=== PATIENT | female | born 1995 | race Caucasian/White ===

== ENCOUNTER 2017-09-18 14:37 | Emergency (ER) | payer OTHER ==
[~2017-09-18] VITALS: Ht 167.6 cm; Wt 72.6 kg
--- NOTE | 2017-09-18 15:10 | ED INFLUENZA/URI COMPLAINT ---
History of Present Illness General Chief Complaint: General Adult Stated Complaint: FEVER,+VOMITING Source: patient, old records Exam Limitations: no limitations Vital Signs & Intake/Output Vital Signs & Intake/Output Vital Signs Date Time Temp Pulse Resp B/P B/P Pulse O2 O2 Flow FiO2 Mean Ox Delivery Rate 09/18 1619 98.8 09/18 1618 98.8 100 16 160/88 97 Room Air 09/18 1527 97 09/18 1447 99.9 125 20 171/99 95 Room Air Allergies Coded Allergies: NO KNOWN ALLERGIES (09/18/17) Reconcile Medications Oseltamivir Phosphate (Tamiflu) 75 MG CAPSULE 1 CAP PO BID flu Triage Note: PT C/O FEVER X 2 DAYS, CHEST CONGESTION WITH PRODUCTIVE COUGH. Triage Nurses Notes Reviewed? yes Onset: Abrupt Duration: day(s): (3), constant Timing: recent history Severity: moderate Severity Numbers: 5 No Modifying Factors: none Associated Symptoms: cough, muscle aches, nasal congestion, sore throat : No Patient currently breastfeeds: No HPI: This is a 22-year-old female no known medical history presents to the ER complaining of productive cough yellow sputum, fevers as high as 101.8 congestion for the past 3 days. She's been taking Advil and Mucinex without improvement her last dose of Advil was yesterday. She also reports to nausea and diarrhea. No vomiting no abdominal pain no shortness of breath no rashes to her skin no urinary urgency frequency dysuria. No sick contacts she did not receive a flu shot this year. (Jose Solano) Past History Travel History Traveled to [place] past 21 day No Medical History Any Pertinent Medical History? none Surgical History Surgical History: none Psychosocial History What is your primary language [place] Citizen Tobacco Use: Never used ETOH Use: occasional use Illicit Drug Use: denies illicit drug use Family History Hx Contributory? No (Jose Solano) Review of Systems Review of Systems Constitutional: Reports: see HPI. Comments Review of systems: See HPI, All other systems negative. Constitutional, no chills fever, HEENT:sore throat congestion, no ear pain Cardiovascular: chest pain , no palpitation Skin: no rashes, no change in skin Respiratory: No dyspnea cough no sputum no hemoptysis GI: No nausea no vomiting, no diarrhea, Muscle skeletal: No joint pain, no back pain Neurologic: , no headache Heme/endocrine: No bruising Immunology: No lymphadenopathy (Jose Solano) Physical Exam Physical Exam General Appearance: well developed/nourished, no apparent distress, alert, awake , comfortable Ears, Nose, Throat: pharynx normal, nasal congestion, nasal drainage Comments: Well-developed well-nourished patient in no apparent distress. Head/Face: Atraumatic, no maxillary/frontal sinus tenderness, no facial swelling Eyes: PERRL, EOMI, no conjunctival injection Ear:External auditory canal and Tympanic membranes clear, no erythema, no FB. Nose: atraumatic.Normal inspection Throat: Moist mucous membranes.Pharynx normal. No pharyngeal erythema/exudate seen. No stridor/drooling or assymetry. No swelling or edema. Neck: Supple, (+) ANTERIOR cervical lymphadenopathy, FROM Back: FROM Cardiovascular: Tachycardic, regular rhythm no murmurs Respiratory: Chest nontender.There were no bony deformities, no asymmetry. No respiratory distress. Patient speaking in full complete sentences. Breath sounds clear to auscultation bilaterally: NO W/R/R Extremities: full range of motion Neuro: awake, alert, and oriented to person, place and time. There were no obvious focal neurologic abnormalities. Skin: Warm & dry;No appreciable rash on exposed skin Psych: Mood affect normal, normal memory normal judgment. Core Measures Sepsis Present: No Sepsis Focused Exam Completed? No (Jose Solano) Progress Differential Diagnosis: influenza, otitis, pneumonia, pharyngitis, sinusitis, pericarditis, viral syndrome, Plan of Care: Orders Procedure Date/time Status RAPID VIRAL INFLUENZA A 09/18 1526 Complete Microbiology 09/18 1548 NASOPHARYN: Influenza Virus A & B Rapid Smear - COMP INFLUENZA TYPE A Patient medicated ibuprofen x-ray flu swab ordered. I discussed with the patient at length all of their results. She is still noted to be tachycardic there is no pain with inspiration, I believe her symptoms are most likely attributable to her positive flu. I discussed with her need for rest hydration. I had an extensive conversation regarding need for close follow up with their primary care physician this week as well as return precautions. I answered all of their questions, they feel comfortable with the plan and follow- up care. I discussed with the patient/family the medications that they will receive. I gave them signs and symptoms that could indicate an adverse reaction. I have advised them to limit their activities until they can see how they respond to the medication. Diagnostic Imaging: Viewed by Me: Radiology Read. Discussed w/RAD: Radiology Read. Radiology Impression: PATIENT: ADRIANNE TODD PRESENT AGE: 22 PATIENT ACCOUNT NO: [id number] : 94 LOCATION: [facility] ORDERING PHYSICIAN: Jose ALBRIGHT SERVICE DATE: 09/18/17 EXAM TYPE: RAD - XRY-CHEST XRAY, TWO VIEWS EXAMINATION: CHEST 2 VIEWS CLINICAL INFORMATION: Cough, shortness of breath, fever. COMPARISON: 01/03/2013. TECHNIQUE: PA and lateral views of the chest were obtained. FINDINGS: The cardiac silhouette is not enlarged. The mediastinal and hilar contours are unremarkable. There are neither pleural effusions nor pneumothoraces. There are no consolidations. The osseous structures are unremarkable. IMPRESSION: No evidence for acute disease. DICTATED BY: Johan Keyes MD DATE/TIME DICTATED:09/18/171551 MICROSTRATEGY ARCHITECT DEVELOPER:JOHNNY DATE/TIME TRANSCRIBED:09/18/171551 CONFIDENTIAL, DO NOT COPY WITHOUT APPROPRIATE AUTHORIZATION. <Electronically signed in Other Vendor System> SIGNED BY: Johan Keyes MD 09/18/176 Initial ED EKG: none (Jose Solano) Departure Departure Time of Disposition: 1612 Disposition: HOME OR SELF CARE Condition: Stable Clinical Impression Primary Impression: Influenza Referrals: Danielle Vaz DO (PCP/Family) Additional Instructions: TAMIFLU DIRECTED. DRINK PLENTY OF FLUIDS, REST, TYLENOL OR MOTRIN EVERY 4-6 HOURS. follow up with your pmd, return with any concerns Departure Forms: Customer Survey General Discharge Information Prescriptions: Current Visit Scripts Oseltamivir Phosphate (Tamiflu) 1 CAP PO BID #10 CAP (Jose Solano) PA/VICE PRESIDENT SAFETY Co-Sign Statement Statement: ED Attending supervision documentation- [] I saw and evaluated the patient. I have also reviewed all the pertinent lab results and diagnostic results. I agree with the findings and the plan of care as documented in the PA's/VICE PRESIDENT SAFETY's documentation. [X] I have reviewed the ED Record and agree with the PA's/VICE PRESIDENT SAFETY's documentation. [] Additions or exceptions (if any) to the PAs/VICE PRESIDENT SAFETY's note and plan are summarized below: [] (Vilma BOYER,Mikey Rebollar)
--- NOTE | 2017-09-18 15:59 | RADIOLOGY REPORT ---
EXAMINATION: CHEST 2 VIEWS CLINICAL INFORMATION: Cough, shortness of breath, fever. COMPARISON: 01/03/2013. TECHNIQUE: PA and lateral views of the chest were obtained. FINDINGS: The cardiac silhouette is not enlarged. The mediastinal and hilar contours are unremarkable. There are neither pleural effusions nor pneumothoraces. There are no consolidations. The osseous structures are unremarkable. IMPRESSION: No evidence for acute disease.
[2017-09-18] MEDS ORDERED: TAMIFLU75 M1 PO (16:14)
[2017-09-18 16:18] VITALS: BP 160/88
== END 2017-09-18 16:17 ==
LOC: ERH 14:37
DX: J11.1 Influenza due to unidentified influenza virus with other respiratory manifestations (principal)
CPT/HCPCS: 71046; 87804; 87804-59